=== PATIENT | female | born 1960 | race Caucasian/White ===

== ENCOUNTER → 2017-01-31 | Outpatient (CLI) | payer BC ==
--- NOTE | 2017-01-31 14:15 | XR ---
EXAMINATION TYPE: XR foot complete LT DATE OF EXAM: 01/31/2017 12:48 PM COMPARISON: NONE HISTORY: 56-year-old female with medial sided pain after crushing injury 3 weeks ago TECHNIQUE: 3 views FINDINGS: There is a bipartite tibial sesamoid with suggestion of mild pes planus and bunion formation. Bone is land within the first metatarsal head. There may be early bunion formation as well. Tiny plantar calc aneal spur. IMPRESSION: Mild hallux valgus and bunion. Additional suggestion of bunion formation. Tiny plantar calcaneal spur . No acute osseous abnormality seen.
== END ==
LOC: RADXRMAIN 12:32
PROVIDERS: ATTEND Family Medicine
DX: M77.32 Calcaneal spur, left foot (principal); M21.612 Bunion of left foot

== ENCOUNTER 2018-02-04 13:31 | Day surgery (SDC) | payer BC ==
[2018-01-31 18:30] VITALS: BMI 25.8
[~2018-02-04 13:31] MED LIST: LACTATED RINGERS 1,000 ML IV SCH; LIDOCAINE 1% 20 ML VIAL (10MG/ML) FOR IV START INTRADERMA PRN
[2018-02-04 13:50] VITALS: RESP 16; TEMP 98
[2018-02-04] MEDS ORDERED: PROPOFOL 10 MG/ML 20 ML VIAL IV ONE (14:00)
[2018-02-04] MEDS ORDERED: LIDOCAINE 1% INJ 10MG/ML (20 ML MDV) ONE (14:00)
--- NOTE | 2018-02-04 14:27 | P.PCN ---
Date of Procedure: 02/04/18 Procedure(s) Performed: Procedure: Total colonoscopy. Preoperative diagnosis: Screening for neoplasia. Postoperative diagnosis: Mild sigmoid diverticulosis with no evidence of acute diverticulitis, strictures, polyps or cancer. Preparation: HalfLytely prep. Sedation: Was provided by anesthesia. Brief clinical history: The patient is a 57-year-old female who is scheduled for this evaluation for screening for neoplasia age being her risk factor. She has no abdominal complaints bleeding or anemia. There is no family history of colon cancer. This would be her first colonoscopy. Procedure: With the patient on her left lateral decubitus position and after informed consent and adequate sedation, the perianal area was inspected and it did not show any fissures or fistulas. There were no masses felt on digital rectal examination. The Olympus CFQ 160L video colonoscope was then inserted in the rectum in the usual fashion and advanced to the cecum. There were occasional diverticular orifices seen scattered in the sigmoid with no evidence of acute diverticulitis or strictures. No polyps or tumors were seen. I retroflexed the endoscope in the rectum before the endoscope was withdrawn. The patient tolerated the procedure well. Plan: The patient was reassured. Discussed dietary measures. She will follow- up with you as planned and I recommended repeat exam in 10 years.
[2018-02-04 14:36] VITALS: BP 106/69; PULSE 69
== END 2018-02-04 14:59 | disposition home or self-care (01) ==
LOC: ORWHC2ENDO 13:31
DX: Z12.11 Encounter for screening for malignant neoplasm of colon (principal); K57.30 Diverticulosis of large intestine without perforation or abscess without bleeding; Z88.5 Allergy status to narcotic agent; Z79.1 Long term (current) use of non-steroidal anti-inflammatories (NSAID)
CPT/HCPCS: J2001; J2704; G0121

== ENCOUNTER → 2018-05-06 | Outpatient (CLI) | payer BC ==
--- NOTE | 2018-05-07 09:05 | MM ---
Reason for exam: screening (asymptomatic). Last mammogram was performed 2 years and 4 months ago. History: Patient is postmenopausal. Physical Findings: A clinical breast exam by your physician is recommended on an annual basis and results should be correlated with mammographic findings. MG Screening Mammo w CAD Bilateral CC and MLO view(s) were taken. Prior study comparison: January 17, 2016, bilateral MG screening mammo w CAD. January 13, 2015, bilateral MG screening mammo w CAD. There are scattered fibroglandular densities. No significant changes when compared with prior studies. ASSESSMENT: Negative, BI-RAD 1 RECOMMENDATION: Routine screening mammogram of both breasts in 1 year.
== END | disposition home or self-care (01) ==
LOC: RADMAMWWP 06:54
PROVIDERS: ATTEND Family Medicine
DX: Z12.31 Encounter for screening mammogram for malignant neoplasm of breast (principal)
CPT/HCPCS: 77067

== ENCOUNTER 2020-04-17 07:44 | Emergency (ER) | payer BC ==
[2020-04-17 07:49] VITALS: RESP 18; TEMP 97.7
[2020-04-17] MEDS ORDERED: KETOROLAC 30 MG/ML 1 ML VIAL IVP STA (08:11)
[2020-04-17] MEDS ORDERED: ORPHENADRINE 30 MG/ML 2 ML VIAL IVP STA (08:11)
--- NOTE | 2020-04-17 08:18 | ED ---
Back Pain HPI - General Chief Complaint: Back Pain/Injury Stated Complaint: Back pain Time Seen by Provider: 04/17/20 07:59 Source: patient, RN notes reviewed Limitations: no limitations - History of Present Illness Initial Comments: This is a 51-year-old female with prior back issues many years ago who states she was getting up out of a chair last night around 5 PM she has severe excruciating sharp pain in the left side of her low back some radiation into her buttock. No urinary or fecal incontinence no known injury or trauma prior. She states is about 10/10 severity does increase with movement. She states it hurts a bit yesterday helped out of the chair. No complaints or modifying factors. She denies any fevers chills sweats dysuria MD Complaint: back pain - Related Data Home Medications Medication Instructions Recorded Confirmed Multivitamins, Thera [Multivitamin 1 tab PO DAILY 01/31/18 01/31/18 (formulary)] Naproxen Sodium [Aleve] 220 mg PO DAILY PRN 01/31/18 01/31/18 Previous Rx's Medication Instructions Recorded Hydrocodone/Acetaminophen [[place] 1 each PO Q6HR PRN #20 tab 04/17/20 5-325] Ibuprofen 800 mg PO Q6HR PRN #20 tablet 04/17/20 Orphenadrine [Norflex] 100 mg PO Q12H #7 tablet.er 04/17/20 Allergies Allergy/AdvReac Type Severity Reaction Status Date / Time codeine Allergy Unknown Itching, Verified 04/17/20 07:48 Rash, [place] prickly all over. Review of Systems ROS Statement: Those systems with pertinent positive or pertinent negative responses have been documented in the HPI. ROS Other: All systems not noted in ROS Statement are negative. Past Medical History Past Medical History: No Reported History History of Any Multi-Drug Resistant Organisms: None Reported Past Surgical History: Tubal Ligation Past Anesthesia/Blood Transfusion Reactions: No Reported Reaction Past Psychological History: No Psychological Hx Reported Smoking Status: Never smoker Past Alcohol Use History: Rare Past Drug Use History: None Reported - Past Family History Brother(s) Family Medical History: Cancer Additional Family Medical History / Comment(s): throat cancer General Exam - General Exam Comments Initial Comments: This is a well-developed sec appearing female was awake alert oriented 3 Limitations: no limitations General appearance: alert, anxious, in distress Head exam: Present: atraumatic, normocephalic, normal inspection Eye exam: Present: normal appearance, PERRL, EOMI. Absent: scleral icterus, conjunctival injection, periorbital swelling ENT exam: Present: normal exam, mucous membranes moist Neck exam: Present: normal inspection. Absent: tenderness, meningismus, lymphadenopathy Respiratory exam: Present: normal lung sounds bilaterally. Absent: respiratory distress, wheezes, rales, rhonchi, stridor Cardiovascular Exam: Present: regular rate, normal rhythm, normal heart sounds. Absent: systolic murmur, diastolic murmur, rubs, gallop, clicks GI/Abdominal exam: Present: soft, normal bowel sounds. Absent: distended, tenderness, guarding, rebound, rigid Extremities exam: Present: normal inspection, full ROM, normal capillary refill. Absent: tenderness, pedal edema, joint swelling, calf tenderness Back exam: Present: normal inspection, tenderness, other (Tennis palpation along the left SI joint and into the left gluteus musculature. No overt spinous proc ess tenderness some mild left paraspinous lumbar tenderness palpation no step- off or crepitation.) Neurological exam: Present: alert, oriented X3, CN II-XII intact Psychiatric exam: Present: normal affect, normal mood Skin exam: Present: warm, dry, intact, normal color. Absent: rash Course Vital Signs 04/17/20 07:46 Temperature 97.7 F Pulse Rate 77 Respiratory 18 Rate Blood Pressure 137/97 O2 Sat by Pulse 98 Oximetry - Reevaluation(s) Reevaluation #1: 04/17/20 10:04 The patient initially did not get much relief from the initial medication given IV dye a lot of was given afterwards. Medical Decision Making - Medical Decision Making Patient is feeling much improved and able move better than she did earlier. After long discussion she'll be discharged she'll be placed on appropriate medication she is a follow-up with Dr. Jung and return when necessary she will get a work note off for several days. - Lab Data Result diagrams: 04/17/20 08:27 Lab Results 04/17/20 Range/Units 08:27 Sodium 139 (137-145) mmol/L Potassium 4.0 (3.5-5.1) mmol/L Chloride 109 H (98-107) mmol/L Carbon Dioxide 23 (22-30) mmol/L Anion Gap 7 mmol/L BUN 15 (7-17) mg/dL Creatinine 0.54 (0.52-1.04) mg/dL Est GFR (CKD-EPI)AfAm >90 (>60 ml/min/1.73 sqM) Est GFR (CKD-EPI)NonAf >90 (>60 ml/min/1.73 sqM) Glucose 104 H (74-99) mg/dL Calcium 9.2 (8.4-10.2) mg/dL Magnesium 2.1 (1.6-2.3) mg/dL Total Bilirubin 0.6 (0.2-1.3) mg/dL AST 20 (14-36) U/L ALT 12 (4-34) U/L Alkaline Phosphatase 61 (38-126) U/L Total Protein 7.1 (6.3-8.2) g/dL Albumin 4.5 (3.5-5.0) g/dL - Radiology Data Radiology results: report reviewed (I did review the imaging and report no acute findings are seen.), image reviewed Disposition Clinical Impression: Mechanical back pain, Strain of lumbar region, Sciatica Disposition: HOME SELF-CARE Condition: Good Instructions (If sedation given, give patient instructions): Acute Low Back Pain (ED) Prescriptions: Ibuprofen 800 mg PO Q6HR PRN #20 tablet PRN Reason: Pain Hydrocodone/Acetaminophen [[place] 5-325] 1 each PO Q6HR PRN #20 tab PRN Reason: Pain Orphenadrine [Norflex] 100 mg PO Q12H #7 tablet.er Is patient prescribed a controlled substance at d/c from ED?: Yes When asked, does pt state using other controlled substances?: No If prescribed controlled substance>3 days was MAPS reviewed?: Prescribed <3 Days If opioid is for acute pain is fill amount 7 days or less?: Yes If Rx opioid, was Start Talking consent form obtained?: Yes Referrals: Griffin Jung DO [Primary Care Provider] - 1-2 days
[2020-04-17 08:48] LABS: ALT 12 U/L (4-34); AST 20 U/L (14-36); African American GFR (CKD) >90 (>60 ml/min/1.73 sqM); Albumin 4.5 g/dL (3.5-5.0); Alkaline Phosphatase 61 U/L (38-126); Anion Gap 7 mmol/L; Blood Urea Nitrogen 15 mg/dL (7-17); Calcium 9.2 mg/dL (8.4-10.2); Carbon Dioxide 23 mmol/L (22-30); Chloride 109 mmol/L (98-107); Glucose 104 mg/dL (74-99); Magnesium 2.1 mg/dL (1.6-2.3); Non-African American GFR(CKD) >90 (>60 ml/min/1.73 sqM); Sodium 139 mmol/L (137-145); Total Bilirubin 0.6 mg/dL (0.2-1.3); Total Protein 7.1 g/dL (6.3-8.2)
--- NOTE | 2020-04-17 08:55 | XR ---
EXAMINATION TYPE: XR lumbosacral spine min 4V , 5 VIEWS DATE OF EXAM ORDERED: 04/17/2020 HISTORY: Severe lumbar pain. COMPARISON: None. FINDINGS: Vertebral body height and alignment are maintained. There is no spondylolysis or spondylol isthesis. There is diffuse, mild disc space loss, most marked at C3-4. There is mild hypertrophic spo ndylosis at C4-5 and C3-4. There is moderate spondylosis deformans present at L4-5 on the right and L 3-4 on the left. The pedicles are intact. IMPRESSION: 1. NO ACUTE OSSEOUS LESION. 2. DEGENERATIVE CHANGE.
[2020-04-17] MEDS ORDERED: HYDROmorphone 1 MG/ML 1 ML SYRINGE IVP STA (09:14)
--- NOTE | 2020-04-17 10:23 | ED ---
Medical Decision Making - Lab Data Result diagrams: 04/17/20 08:27 Lab Results 04/17/20 Range/Units 08:27 Sodium 139 (137-145) mmol/L Potassium 4.0 (3.5-5.1) mmol/L Chloride 109 H (98-107) mmol/L Carbon Dioxide 23 (22-30) mmol/L Anion Gap 7 mmol/L BUN 15 (7-17) mg/dL Creatinine 0.54 (0.52-1.04) mg/dL Est GFR (CKD-EPI)AfAm >90 (>60 ml/min/1.73 sqM) Est GFR (CKD-EPI)NonAf >90 (>60 ml/min/1.73 sqM) Glucose 104 H (74-99) mg/dL Calcium 9.2 (8.4-10.2) mg/dL Magnesium 2.1 (1.6-2.3) mg/dL Total Bilirubin 0.6 (0.2-1.3) mg/dL AST 20 (14-36) U/L ALT 12 (4-34) U/L Alkaline Phosphatase 61 (38-126) U/L Total Protein 7.1 (6.3-8.2) g/dL Albumin 4.5 (3.5-5.0) g/dL Disposition Clinical Impression: Mechanical back pain, Strain of lumbar region, Sciatica Disposition: HOME SELF-CARE Condition: Good Instructions (If sedation given, give patient instructions): Acute Low Back Pain (ED) Prescriptions: Ibuprofen 800 mg PO Q6HR PRN #20 tablet PRN Reason: Pain Hydrocodone/Acetaminophen [[place] 5-325] 1 each PO Q6HR PRN #20 tab PRN Reason: Pain Orphenadrine [Norflex] 100 mg PO Q12H #7 tablet.er Is patient prescribed a controlled substance at d/c from ED?: Yes When asked, does pt state using other controlled substances?: No If prescribed controlled substance>3 days was MAPS reviewed?: Prescribed <3 Days If opioid is for acute pain is fill amount 7 days or less?: Yes If Rx opioid, was Start Talking consent form obtained?: Yes Referrals: Griffin Jung DO [Primary Care Provider] - 1-2 days
[2020-04-17 10:24] VITALS: BP 111/72; PULSE 78
== END 2020-04-17 10:22 | disposition home or self-care (01) ==
LOC: EC 07:44
DX: S39.012A Strain of muscle, fascia and tendon of lower back, initial encounter (principal); M54.42 Lumbago with sciatica, left side; Z88.5 Allergy status to narcotic agent; X58.XXXA Exposure to other specified factors, initial encounter
CPT/HCPCS: 36415; 80053; 83735; 72110; 99283; 96374; 96375 ×2; J2360; J1885; J1170

== ENCOUNTER → 2021-01-13 | Outpatient (CLI) | payer BC ==
--- NOTE | 2021-01-17 13:58 | MM ---
Reason for exam: screening (asymptomatic). Last mammogram was performed 2 years and 8 months ago. History: Patient is postmenopausal. Physical Findings: A clinical breast exam by your physician is recommended on an annual basis and results should be correlated with mammographic findings. MG Screening Mammo w CAD Bilateral CC and MLO view(s) were taken. XCCL view(s) were taken of the right breast. Prior study comparison: May 06, 2018, bilateral MG screening mammo w CAD. January 17, 2016, bilateral MG screening mammo w CAD. There are scattered fibroglandular densities. No significant changes when compared with prior studies. ASSESSMENT: Negative, BI-RAD 1 RECOMMENDATION: Routine screening mammogram of both breasts in 1 year.
== END | disposition home or self-care (01) ==
LOC: RADMAMWWP 11:35
PROVIDERS: ATTEND Family Medicine
DX: Z78.0 Asymptomatic menopausal state (principal); Z12.31 Encounter for screening mammogram for malignant neoplasm of breast
CPT/HCPCS: 77067

== ENCOUNTER → 2025-01-21 | Outpatient (CLI) | payer BC ==
--- NOTE | 2025-01-21 08:30 | XR ---
EXAMINATION TYPE: XR shoulder complete RT DATE OF EXAM: 01/21/2025 8:25 AM INDICATION: Patient age:Female; 64 years old; Reason for study: M25.511 Pain rt shoulder; pain COMPARISON: None TECHNIQUE: The right shoulder was examined in AP, internally rotated and scapular Y projections. . FINDINGS: No evidence of acute osseous pathology, joint dislocation, or soft tissue swelling. No joint space na rrowing. The remaining portions of the visualized chest are unremarkable. IMPRESSION: No acute osseous pathology. [facility], , 01/21/2025 8:28 AM
== END | disposition home or self-care (01) ==
LOC: RADXRMAIN 08:11
PROVIDERS: ATTEND Family Medicine
DX: M25.511 Pain in right shoulder (principal)

== ENCOUNTER → 2025-03-11 | Outpatient (CLI) | payer BC ==
--- NOTE | 2025-03-11 07:45 | MM ---
Reason for Exam: Additional evaluation requested from abnormal screening. Last screening mammogram was performed less than 1 month ago. Patient History: Menarche at age 16. First Full-Term at age 26. Postmenopausal. Risk Values: Elissa 5 year model risk: 1.6%. NCI Lifetime model risk: 6.8%. Prior Study Comparison: 05/06/2018 Bilateral Screening Mammogram, [facility]. 01/13/2021 Bilateral Screening Mammogram, [facility]. 03/02/2025 Bilateral MG 3D screening mammo w/cad, [facility]. Tissue Density: Left: There are scattered areas of fibroglandular density. Findings: Analyzed By CAD. Asymmetric prominent tissue upper aspect left breast middle depth is unchanged from older mammograms and additional views. No suspicious new mass persists. Overall Assessment: Negative, BI-RAD 1 Management: Screening Mammogram of both breasts in 1 year. Return to routine follow-up. Results were given to the patient verbally at the time of exam. Patient should continue monthly self-breast exams. A clinical breast exam by your physician is recommended on an annual basis. This exam should not preclude additional follow-up of suspicious palpable abnormalities. Note on Elissa scores and lifetime risk: 1. A Elissa score greater than 3% is considered moderate risk. If this is the case, consider specialist referral to assess eligibility for a risk reducing agent. 2. If overall lifetime risk for the development of breast cancer is 20% or higher, the patient may qualify for future screening with alternating mammogram and breast MRI. [facility], , 03/11/2025 7:42 AM. Electronically signed and approved by: Randell Fernandez M.D.
== END | disposition home or self-care (01) ==
LOC: RADMAMWWP 07:23
PROVIDERS: ATTEND Family Medicine
DX: R92.8 Other abnormal and inconclusive findings on diagnostic imaging of breast (principal); R92.322 Mammographic fibroglandular density, left breast; Z78.0 Asymptomatic menopausal state
CPT/HCPCS: 77061; 77065

== ENCOUNTER 2025-04-26 08:12 | Emergency (ER) | payer BC ==
[2025-04-26 08:23] VITALS: RESP 18
--- NOTE | 2025-04-26 08:36 | ED ---
Back Pain HPI - General Chief Complaint: Back Pain/Injury Stated Complaint: Back pain Time Seen by Provider: 04/26/25 08:36 Source: patient, family, RN notes reviewed Mode of arrival: wheelchair Limitations: no limitations - History of Present Illness Initial Comments: 64-year-old female presented the ER for evaluation of back pain. Patient r eports for the past 2 weeks she has been experiencing an achy left sided back discomfort with radiation down the left lower extremity. She reports laying flat does improve the pain but moving or getting up out of the chair exacerbates the pain to a sharp nature rating it an 8 out of 10. She denies any falls or injuries. Patient does report her back will occasionally "go out" but improves after a couple of days. No prior back surgeries. Patient was evaluated at urgent care last week and discharged with muscle relaxers and steroids. Patient states she did have improvement after these medications but ran out of these medications and pain is worsened. Upon waking today patient noted numbness to anterior left thigh and increase in pain. Patient denies any abdominal pain, hematuria, dysuria, fevers, chills, chest pain or shortness of breath. Patient denies any saddle paresthesias, bowel or bladder incontinence/retention, fevers or history of IV drug abuse. - Related Data Home Medications Medication Instructions Recorded Confirmed Multivitamins, Thera [Multivitamin 1 tab PO DAILY 01/31/18 01/31/18 (formulary)] Naproxen Sodium [Aleve] 220 mg PO DAILY PRN 01/31/18 01/31/18 Previous Rx's Medication Instructions Recorded Hydrocodone/Acetaminophen [[place] 1 each PO Q6HR PRN #20 tab 04/17/20 5-325] Ibuprofen 800 mg PO Q6HR PRN #20 tablet 04/17/20 Orphenadrine [Norflex] 100 mg PO Q12H #7 tablet.er 04/17/20 Cyclobenzaprine [Flexeril] 10 mg PO TID PRN #15 tab 04/26/25 Ketorolac [Toradol] 10 mg PO Q6HR PRN #15 tab 04/26/25 Lidocaine 5% Patch [Lidoderm 5% 1 patch TOPICAL DAILY PRN #20 patch 04/26/25 Patch] Allergies Allergy/AdvReac Type Severity Reaction Status Date / Time codeine Allergy Unknown Itching, Verified 04/26/25 08:15 Rash, [place] prickly all over. Review of Systems ROS Statement: Those systems with pertinent positive or pertinent negative responses have been documented in the HPI. ROS Other: All systems not noted in ROS Statement are negative. Past Medical History Past Medical History: No Reported History History of Any Multi-Drug Resistant Organisms: None Reported Past Surgical History: Tubal Ligation Past Anesthesia/Blood Transfusion Reactions: No Reported Reaction Past Psychological History: No Psychological Hx Reported Smoking Status: Never smoker Past Alcohol Use History: Rare Past Drug Use History: None Reported - Past Family History Brother(s) Family Medical History: Cancer Additional Family Medical History / Comment(s): throat cancer General Exam Limitations: no limitations General appearance: alert, in no apparent distress Neck exam: Present: normal inspection. Absent: tenderness, meningismus, lymphadenopathy Respiratory exam: Present: normal lung sounds bilaterally. Absent: respiratory distress, wheezes, rales, rhonchi, stridor Cardiovascular Exam: Present: regular rate, normal rhythm, normal heart sounds. Absent: systolic murmur, diastolic murmur, rubs, gallop, clicks Extremities exam: Present: normal inspection, full ROM, normal capillary refill (2+ bilateral DP/PT pulses.), other (Pain with bilateral straight leg raise. Full range of motion of bilateral lower extremities.). Absent: tenderness, pedal edema, joint swelling, calf tenderness Neurological exam: Present: alert, oriented X3, CN II-XII intact Skin exam: Present: warm, dry, intact, normal color. Absent: rash Course Vital Signs 04/26/25 04/26/25 04/26/25 08:13 08:19 10:55 Temperature 97.7 F 97.7 F 97.9 F Pulse Rate 106 H 87 81 Respiratory 20 18 18 Rate Blood Pressure 110/76 129/84 121/80 O2 Sat by Pulse 99 98 99 Oximetry Medical Decision Making - Medical Decision Making Was pt. sent in by a medical professional or institution (, PA, AUTOMOBILE TECHNICIAN, urgent care, hospital, or group home...) When possible be specific @ -No Did you speak to anyone other than the patient for history (EMS, parent, family, police, friend...)? What history was obtained from this source @ -Family, bedside, aiding in HPI past medical history. Did you review nursing and triage notes (agree or disagree)? Why? @ -I reviewed and agree with nursing and triage notes Were old charts reviewed (outside hosp., previous admission, EMS record, old EKG, old radiological studies, urgent care reports/EKG's, group home records)? Report findings @ -No old charts were reviewed Differential Diagnosis (chest pain, altered mental status, abdominal pain women, abdominal pain men, vaginal bleeding, weakness, fever, dyspnea, syncope, headache, dizziness, GI bleed, back pain, seizure, CVA, palpatations, mental health, musculoskeletal)? @ -Differential Back Pain:Strain, zoster, cauda equina syndrome, epidural abscess, vertebral osteomyelitis, discitis, fracture, subluxation, disc herniation, DJD, spinal stenosis, dissection, AAA, pancreatitis, peptic ulcer disease, pyelonephritis, kidney stone, this is not meant to be an all-inclusive list. EKG interpreted by me (3pts min.). @ -None done X-rays interpreted by me (1pt min.). @ -Lumbar spine x-rays interpreted me negative for acute fractures or dislocations. CT interpreted by me (1pt min.). @ -None done U/S interpreted by me (1pt. min.). @ -None done What testing was considered but not performed or refused? (CT, X-rays, U/S, labs)? Why? @ -None What meds were considered but not given or refused? Why? @ -None Did you discuss the management of the patient with other professionals (professionals i.e. , PA, AUTOMOBILE TECHNICIAN, lab, RT, psych nurse, social services designee, director of design, teacher, licensed mortgage loan officer, caseworker protective services)? Give summary @ -No Was smoking cessation discussed for >3mins.? @ -No Was critical care preformed (if so, how long)? @ -No Were there social determinants of health that impacted care today? How? (Homelessness, low income, unemployed, alcoholism, drug addiction, transportation, low edu. Level, literacy, decrease access to med. care, fdc, rehab)? @ -No Was there de-escalation of care discussed even if they declined (Discuss DNR or withdrawal of care, Hospice)? DNR status @ -No What co-morbidities impacted this encounter? (DM, HTN, Smoking, COPD, CAD, Cancer, CVA, ARF, Chemo, Hep., AIDS, mental health diagnosis, sleep apnea, morbid obesity)? @ -Back pain Was patient admitted / discharged? Hospital course, mention meds given and route, prescriptions, significant lab abnormalities, going to OR and other pertinent info. @ -[Discharge. 64-year-old female presented the ER for evaluation of back pain x 2 weeks. Vital signs stable. Patient no signs of acute distress nontoxic- appearing. No red flag back pain symptoms indicative cauda equina syndrome. Patient is neurovascularly intact. X-rays obtained negative for acute fractures or dislocations. Patient provided with symptomatic treatment in the emergency department. Patient ambulated emergency department without difficulty. Symptoms improved. Patient discharged in stable condition advised follow-up with orthopedics, referral given. Flexeril, lidocaine patches and Toradol prescribed. Return parameters discussed. Patient verbally expressed understanding agreement with care plan. Work note provided. Case discussed with ED attending, Dr. Woodall. Undiagnosed new problem with uncertain prognosis? @ -No Drug Therapy requiring intensive monitoring for toxicity (Heparin, Nitro, Insulin, Cardizem)? @ -No Were any procedures done? @ -No Diagnosis/symptom? @ -Back pain Acute, or Chronic, or Acute on Chronic? @ -Acute Uncomplicated (without systemic symptoms) or Complicated (systemic symptoms)? @ -Uncomplicated Side effects of treatment? @ -No Exacerbation, Progression, or Severe Exacerbation? @ -No Poses a threat to life or bodily function? How? (Chest pain, [place], [place], pneumonia, PE, COPD, DKA, ARF, appy, cholecystitis, CVA, Diverticulitis, Homicidal, Suicidal, threat to staff... and all critical care pts) @ -No - Radiology Data Radiology results: report reviewed, image reviewed Disposition Clinical Impression: Back pain Disposition: HOME SELF-CARE Condition: Stable Instructions (If sedation given, give patient instructions): Acute Low Back Pain (ED) Additional Instructions: You may take [id number] ibuprofen and Tylenol for pain control. Follow-up with orthopedics. Return to the ER for any new or worsening concerns. Prescriptions: Cyclobenzaprine [Flexeril] 10 mg PO TID PRN #15 tab PRN Reason: Muscle Spasm Lidocaine 5% Patch [Lidoderm 5% Patch] 1 patch TOPICAL DAILY PRN #20 patch PRN Reason: Muscle Pain Ketorolac [Toradol] 10 mg PO Q6HR PRN #15 tab PRN Reason: Pain Is patient prescribed a controlled substance at d/c from ED?: No Referrals: Griffin Jung DO [Primary Care Provider] - 1-2 days Adilson Dean DO [Doctor of Osteopathic Medicine] - 1-2 days Time of Disposition: 10:28
--- NOTE | 2025-04-26 08:58 | XR ---
EXAMINATION TYPE: XR lumbar spine 2 or 3V DATE OF EXAM: 04/26/2025 8:48 AM COMPARISON: 04/17/2020 CLINICAL INDICATION: Female, 64 years old with history of left sided pain rad anterior LLE, TECHNIQUE: 3 views of the lumbar spine submitted FINDINGS: There are 5 lumbar type vertebral bodies identified. The lumbar spine shows satisfactory alignment without evidence of acute fracture or dislocation. Vertebral body heights are within normal limits. Qagu-th-[id number] multilevel degenerative disc space narrowing and spondylosis. Facet joint a rthropathy noted. The overlying soft tissue appears unremarkable. IMPRESSION: No acute fracture or dislocation is seen in the lumbar spine.ICD 10 NO FRACTURE, INITIAL EVALUATION [facility], , 04/26/2025 8:56 AM
[2025-04-26] MEDS: ORPHENADRINE 30 MG/ML 2 ML VIAL IM STA (09:10)
[2025-04-26] MEDS: LIDOCAINE 4% PATCH TOPICAL ONE (09:14)
[2025-04-26] MEDS: KETOROLAC 15 MG/ML 1 ML VIAL IM STA (09:31)
[2025-04-26] MEDS: KETOROLAC 15 MG/ML 1 ML VIAL IVP STA (09:47)
[2025-04-26 10:59] VITALS: BP 121/80; PULSE 81; TEMP 97.9
== END 2025-04-26 10:58 | disposition home or self-care (01) ==
LOC: EC 08:12
DX: M54.9 Dorsalgia, unspecified (principal); Z88.5 Allergy status to narcotic agent
CPT/HCPCS: 72100; 99283; 96372; J2360; J1885